=== PATIENT | female | born 1950 | race Caucasian/White ===

== ENCOUNTER 2020-04-18 13:54 | Outpatient (CLI) | payer MEDICARE, SELFPAY ==
--- NOTE | 2020-04-18 17:52 | WPDSIXMINUTE ---
Six Minute Walk Six Minute Walk: DOS: 04/18/2020 REQUESTING: Soha Aponte NP REASON FOR TESTING: asthma, unspecified SIX MINUTE WALK This test was conducted per ATS guidelines. The initial saturation was 97% and the pulse was 87. The patient walked for 6 minutes without desaturation, and without stopping to rest, completing 1150 feet/350 meters. Maximum pulse was 101. IMPRESSION: Normal study without desaturation. Distance walked is normal. No supplemental oxygen is indicated.
== END 2020-04-18 13:55 | disposition home or self-care (01) ==
PROVIDERS: PCP Family Medicine; Visit Provider Nurse Practitioner
DX: J45.909 Unspecified asthma, uncomplicated (principal)
CPT/HCPCS: 94618

== ENCOUNTER 2025-01-09 08:47 | Emergency (ER) | payer MEDICARE, SELFPAY ==
--- NOTE | ~2025-01-09 | XR_ITS ---
EXAMINATION: XR foot LT min 3V DATE: 01/09/2025 09:27 INDICATION: Left heel pain with walking TECHNIQUE: Dorsoplantar, two oblique and lateral views of the left foot were obtained. COMPARISON: None. FINDINGS: Mild hallux valgus and varus angulation at the second metatarsophalangeal joint with crossover of the left second toe across the dorsal aspect of the great toe. No fracture. Mild polyarticular osteoarth ritis at multiple tarsometatarsal, metatarsophalangeal and interphalangeal joints. Small plantar calc aneal spur. Soft tissues are unremarkable. IMPRESSION: 1. Small plantar calcaneal spur and mild polyarticular osteoarthritis in the mid and forefoot. No acu te osseous abnormality. 2. 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 Reviewed, dictated and finalized at location A. IMPRESSION: 1. Small plantar calcaneal spur and mild polyarticular osteoarthritis in the mi d and forefoot. No acute osseous abnormality. 2. 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
[2025-01-09 09:00] VITALS: BP 139/89; PULSE 85; RESP 16; TEMP 36.5; O2SAT 97
--- NOTE | 2025-01-09 14:07 | ED_ITS ---
HPI - Extremity Injury (Lower) General Chief Complaint: Extremity Injury, Lower Stated Complaint: L FOOT INJURY Time Seen by Provider: 01/09/25 09:15 Source: patient and RN notes reviewed Mode of arrival: ambulatory Limitations: no limitations History of Present Illness HPI Narrative: 74-year-old female Presents to [facility] Care complaining of left foot pain over the last 3 week. Patient reports pain is worse with walking. The pain is located on bottom of her left heel. Patient denies any injury to her left foot. Patient's has been taking Tylenol or ibuprofen with relief. Patient denies any numbness, tingling or any other injuries. Patient has a history of a bunion to her left great toe. Related Data Home Medications ?Medication ?Instructions ?Recorded ?Confirmed ?Last Taken ?Type atorvastatin 80 mg tablet 80 mg PO QPM 01/09/25 01/09/25 Unknown History magnesium 200 mg tablet 200 mg PO DAILY 01/09/25 01/09/25 Unknown History ranolazine 500 mg tablet,extended 500 mg PO Q12H 01/09/25 01/09/25 Unknown History release,12 hr venlafaxine 150 mg 150 mg PO DAILY 01/09/25 01/09/25 Unknown History capsule,extended release 24 hr venlafaxine 75 mg capsule,extended 75 mg PO DAILY 01/09/25 01/09/25 Unknown History release 24 hr Allergies Allergy/AdvReac Type Severity Reaction Status Date / Time No Known Allergies Allergy Verified 01/09/25 09:01 Review of Systems Review of Systems: CONSTITUTIONAL: Denies fever, chills, or sweats. EYES: Denies visual changes, redness, or discharge. ENT: Denies rhinorrhea, congestion, sore throat, or otalgia. CARDIOVASCULAR: Denies chest pain, palpitations, or edema. RESPIRATORY: Denies cough or dyspnea. GASTROINTESTINAL: Denies abdominal pain, nausea, vomiting, or diarrhea. GENITOURINARY: Denies dysuria or hematuria. SKIN: Denies rash, wound, or itching. MUSCULOSKELETAL: Denies back pain, joint pain, or myalgia. Positive for left foot pain. NEUROLOGIC: Denies headache, numbness, or weakness. PSYCHIATRIC: Denies anxiety or depression. All other systems reviewed are negative, except as documented in HPI. [facility] Past Medical History Medical History Shingles Anemia Anxiety Depression Migraine Bilateral cataracts Fibromyalgia Osteoporosis Asthma Surgical History Surgical History History of section x2 History of cataract surgery Bilateral Family History Family History Other Family history of cardiovascular disease Family history of malignant neoplasm Family history of mental disorder Social History Social History Smoking status: Never smoker Alcohol intake: current Gender identity (if verbalized by the patient): Female Comments At the time of my signature, I reviewed and agree with the nursing past medical, surgical, social, and family history. There is no relevant family history pertinent to the patient complaint. Exam Narrative: GENERAL: This is a well-nourished, well-developed adult, in no apparent distress. They are non ill-appearing, nontoxic appearing. HEAD: normocephalic, atraumatic. EYES: Sclera clear/white. Vision is grossly intact. Conjunctiva normal. Extraocular movement intact. EARS: External ears normal Hearing grossly intact. NOSE: External nose normal THROAT: Mucous membranes moist NECK: Neck supple CARDIOVASCULAR: Regular rate and rhythm RESPIRATORY: Respiratory rate normal, respiratory effort nonlabored, no respiratory distress NEURO: awake, alert, and oriented to person, place and time. There were no obvious focal neurologic abnormalities. EXTREMITIES: Left foot: No obvious deformity, injury, swelling, bruising, redness. Normal range of motion. Tenderness to palpation to the plantar surface of the calcaneus. Capillary refill less than 3 seconds. Left pedal Pulse 2 +palpable. Normal sensation. Neurovascular status intact distal injury. Patient is able to toes. Normal dorsiflexion and plantar flexion. Negative Calles test. BACK: Nontender without deformity. Course Course Emergency Course: Portions of this record may have been created with voice recognition software Level of Care: Express Care Visit Vital Signs Vital signs: Vital Signs Temperature 97.7 F 01/09/25 09:00 Pulse Rate 85 01/09/25 09:00 Respiratory Rate 16 01/09/25 09:00 Blood Pressure 139/89 01/09/25 09:00 Pulse Oximetry 97 01/09/25 09:00 Temperature 97.7 F 01/09/25 09:00 Pulse Rate 85 01/09/25 09:00 Respiratory Rate 16 01/09/25 09:00 Blood Pressure 139/89 01/09/25 09:00 Pulse Oximetry 97 01/09/25 09:00 Reviewed MDM - Extremity Injury (Lower) MDM Narrative Medical decision making narrative: X-ray show evidence of a calcaneal spur, mild arthritis upper foot, and a bunion to the left great toe. Pain is likely related to plantar fasciitis and may be exacerbated by a calcaneal spur. Recommend referral to podiatry and supportive shoes, conservative therapy. Discussed physical exam findings. Advised supportive measures and signs/symptoms to go to the ER. Pt is appropriate for outpt treatment and f/u. Differential Diagnosis Differential diagnosis: Likely other (Plantar fasciitis, bone spurs, foot fracture, foot strain) Imaging Data Radiologist's impression: ITS Impressions Foot X-Ray 01/09/25 10:01 IMPRESSION: 1. Small plantar calcaneal spur and mild polyarticular osteoarthritis in the mid and forefoot. No acute osseous abnormality. 2. 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 Critical Care Time Critical Care Time Critical Care Time: No Discharge Plan Discharge Clinical Impression: Heel spur, Arthritis, Hallux valgus Patient Disposition: Home Condition: Stable Instructions: Bunion (ED), Plantar Fasciitis (ED), Plantar Fasciitis Exercises (ED) Additional Instructions: Your x-ray is negative for any acute fractures or findings. You do have a a bone spur to your heel and mild arthritis to the mid and forefoot. You also have a bunion to your great toe. It is possible the bone spur is causing a plantar fasciitis. Please wear supportive shoe is and cushion footwear. Bare weight as tolerated. Is recommend to wear a silicone heel insert to placing her shoe. You may take Tylenol or ibuprofen as needed for pain. Follow-up with primary care provider or patient resource specialist in 1 week. Patient Language: Japanese Prescriptions: No Action atorvastatin 80 mg tablet 80 mg PO QPM venlafaxine 75 mg capsule,extended release 24hr 75 mg PO DAILY venlafaxine 150 mg capsule,extended release 24hr 150 mg PO DAILY magnesium 200 mg tablet 200 mg PO DAILY ranolazine 500 mg tablet extended release 12 hr 500 mg PO Q12H Follow-up/Referrals: Elvin Ignacio DPM [Physician] - Hightower,Casie Preston APRN [Primary Care Provider] - Time of Disposition: 10:20
== END 2025-01-09 10:24 | disposition home or self-care (01) ==
PROVIDERS: PCP Nurse Practitioner Family
DX: M77.32 Calcaneal spur, left foot (principal); M19.072 Primary osteoarthritis, left ankle and foot; M20.12 Hallux valgus (acquired), left foot; M79.7 Fibromyalgia; M81.0 Age-related osteoporosis without current pathological fracture; J45.909 Unspecified asthma, uncomplicated; F41.9 Anxiety disorder, unspecified; F32.A Depression, unspecified
CPT/HCPCS: 73630; 99213; G0463